=== PATIENT | male | born 1995 | race Two or more races ===

== ENCOUNTER 2017-03-27 17:26 | Emergency (ER) | payer OTHER ==
[2017-03-27 17:41] VITALS: TEMP 99.5; O2SAT 95
[2017-03-27] MEDS ORDERED: ACETAMINOPHEN 500 MG TAB PO ONE (17:53)
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
[2017-03-27 19:46] VITALS: BP 127/73; PULSE 85; RESP 16
== END 2017-03-27 19:41 ==
LOC: EEVIPCON 17:26
DX: S09.90XA Unspecified injury of head, initial encounter (principal); S63.501A Unspecified sprain of right wrist, initial encounter; S09.93XA Unspecified injury of face, initial encounter; Y04.0XXA Assault by unarmed brawl or fight, initial encounter; Y92.149 Unspecified place in prison as the place of occurrence of the external cause; Y99.8 Other external cause status; Y93.89 Activity, other specified